=== PATIENT | male | born 1955 | race Caucasian/White ===

== ENCOUNTER 2022-03-11 19:33 | Inpatient (IN) | payer MEDICARE, OTHER ==
[~2022-03-11] VITALS: Ht 177.8 cm; Wt 104.2 kg
[2022-03-11 20:36] LABS: BASOPHILS # (AUTO) 0.1 X10'3 (0-0.2); BASOPHILS % (AUTO) 0.5 % (0-1); EOSINOPHILS # (AUTO) 0.1 X10'3 (0-0.9); EOSINOPHILS % (AUTO) 0.5 % (0-6); HEMATOCRIT 47.9 % (42.0-52.0); HEMOGLOBIN 16.4 g/dl (14.0-17.9); LYMPHOCYTES # (AUTO) 1.4 X10'3 (1.1-4.8); LYMPHOCYTES % (AUTO) 10.8 % (21-51); MEAN CORPUSCULAR HGB CONC 34.2 g/dL (33.0-36.5); MEAN CORPUSCULAR VOLUME 87.7 FL (78-98); MONOCYTES # (AUTO) 1.1 X10'3 (0-0.9); MONOCYTES % (AUTO) 8.2 % (2-12); NEUTROPHILS # (AUTO) 10.8 X10'3 (1.8-7.7); PLATELET COUNT 226 X10'3 (140-440); RED BLOOD COUNT 5.46 X10'6 (4.70-6.10); RED CELL DISTRIBUTION WIDTH 13.8 % (11.5-14.5); WHITE BLOOD COUNT 13.4 X10'3 (4.5-11.0)
[2022-03-11 20:48] LABS: ALANINE AMINOTRANSFERASE 30 U/L (12-78); ALBUMIN 3.6 G/DL (3.4-5.0); ALKALINE PHOSPHATASE 68 IU/L (46-116); ANION GAP 10 (8-16); ASPARTATE AMINO TRANSFERASE 14 U/L (10-37); BILIRUBIN,TOTAL 0.3 MG/DL (0.1-1.0); BLOOD UREA NITROGEN 17 MG/DL (7-18); BUN/CREATININE RATIO 12.3 (5.4-32.0); CALCIUM 8.4 MG/DL (8.5-10.1); CHLORIDE 101 MMOL/L (99-107); CREATININE 1.38 MG/DL (0.60-1.10); GLUCOSE 137 MG/DL (70-104); POTASSIUM 3.8 MMOL/L (3.5-5.1); SODIUM 133 MMOL/L (135-145); TOTAL CARBON DIOXIDE 22.2 MMOL/L (24-32); TOTAL PROTEIN 7.1 G/DL (6.4-8.2); eGFR 51 ML/MIN
[2022-03-11] MEDS ORDERED: temazepam 15mg capsule PO PRN (21:00)
[2022-03-11] MEDS ORDERED: ipratropium/albuterol 3ml nebule NEB ONE (21:30)
[2022-03-11] MEDS ORDERED: levoFLOXACIN-Levaquin 750MG/D5 150 ML IV ONE (21:30)
[2022-03-11] MEDS ORDERED: acetaminophen 325mg tablet PO ONE (21:30)
[2022-03-11] MEDS ORDERED: acetaminophen 325mg tablet PO PRN ×2 (23:55)
[2022-03-11] MEDS ORDERED: HYDROmorphone inj. 0.5 MG/0.5 ML DISP.SYRIN IV PRN (23:55)
[2022-03-11] MEDS ORDERED: mag hydrox/Alum hydrox/simeth 30ml oral suspension PO PRN (23:55)
[2022-03-11] MEDS ORDERED: HYDROcodone/acetaminophen 10/325mg tab PO PRN (23:55)
[2022-03-11] MEDS ORDERED: diphenhydrAMINE 25mg capsule PO PRN (23:55)
[2022-03-11] MEDS ORDERED: ondansetron 4mg rapidly disintigrating tab PO PRN (23:55)
[2022-03-11] MEDS ORDERED: HYDROcodone/acetaminophen 5mg/325mg tablet PO PRN (23:55)
[2022-03-11] MEDS ORDERED: diphenhydrAMINE 50 mg/ml inj IV PRN (23:55)
[2022-03-11] MEDS ORDERED: ondansetron/PF 4mg/2ml inj IV PRN (23:55)
[2022-03-11] MEDS ORDERED: magnesium hydroxide 30ml (MOM) UD suspension PO PRN (23:55)
[2022-03-11] MEDS ORDERED: morphine 2 MG/ML inj. syringe IV PRN ×2 (23:55)
[2022-03-11] MEDS ORDERED: acetaminophen 650mg rectal suppository RC PRN (23:55)
[2022-03-11] MEDS ORDERED: bisacodyl 10mg suppository rectal RC PRN (23:55)
[2022-03-12 00:24] LABS: CREATINE KINASE 61 U/L (39-308); LIPASE 93 U/L (73-393)
[2022-03-12] MEDS: normal saline 1000ml 1,000 ML IV SCH ×3 (01:01→19:55)
[2022-03-12 01:45] LABS: CLARITY,URINE CLEAR (Clear); COLOR,URINE YELLOW (Yellow); GLUCOSE, URINE NEGATIVE (Neg); KETONES,URINE NEGATIVE (Neg); LEUKOCYTE ESTERASE ,URINE NEGATIVE (Neg); NITRITES, URINE NEGATIVE (Neg); OCCULT BLOOD,URINE NEGATIVE (Neg); PH,URINE 5.5 (4.8-8.0); PROTEIN,URINE NEGATIVE (Neg); UROBILINOGEN,URINE 0.2 E.U/dL (0.2-1.0)
[2022-03-12 01:49] LABS: UA COLLECTION TYPE CLN CATCH MIDSTREAM
[2022-03-12] MEDS: ipratropium/albuterol 3ml nebule NEB SCH ×6 (03:24→23:00)
[2022-03-12 05:00] VITALS: BP 131/83
[2022-03-12 06:37] LABS: D-DIMER 1.86 MG/L FEU (0-0.50)
[2022-03-12 06:39] LABS: APTT 29 SECONDS (22-32)
[2022-03-12 06:56] LABS: BASOPHILS % (AUTO) 0.2 % (0-1); EOSINOPHILS % (AUTO) 0.1 % (0-6); HEMATOCRIT 47.3 % (42.0-52.0); LYMPHOCYTES # (AUTO) 1.9 X10'3 (1.1-4.8); LYMPHOCYTES % (AUTO) 12.9 % (21-51); MEAN CORPUSCULAR HGB CONC 33.9 g/dL (33.0-36.5); MEAN CORPUSCULAR VOLUME 88.5 FL (78-98); MEAN PLATELET VOLUME 7.4 FL (7.4-10.4); MONOCYTES # (AUTO) 1.1 X10'3 (0-0.9); MONOCYTES % (AUTO) 7.8 % (2-12); NEUTROPHILS # (AUTO) 11.5 X10'3 (1.8-7.7); PLATELET COUNT 220 X10'3 (140-440); RED BLOOD COUNT 5.35 X10'6 (4.70-6.10); RED CELL DISTRIBUTION WIDTH 14.2 % (11.5-14.5); WHITE BLOOD COUNT 14.5 X10'3 (4.5-11.0)
--- NOTE | 2022-03-12 07:01 | NUR ---
Patient in room PCU 3028. I have received report from Agustina BLUE and had the opportunity to ask questions and assume patient care.
[2022-03-12 07:05] LABS: ALANINE AMINOTRANSFERASE 29 U/L (12-78); ALBUMIN 3.4 G/DL (3.4-5.0); ALBUMIN/GLOBULIN RATIO 0.9 (1.1-1.5); ALKALINE PHOSPHATASE 63 IU/L (46-116); ANION GAP 10 (8-16); ASPARTATE AMINO TRANSFERASE 13 U/L (10-37); BILIRUBIN,TOTAL 0.7 MG/DL (0.1-1.0); BLOOD UREA NITROGEN 14 MG/DL (7-18); BUN/CREATININE RATIO 11.2 (5.4-32.0); CALCIUM 8.6 MG/DL (8.5-10.1); CHLORIDE 102 MMOL/L (99-107); CHOL/HDL RATIO 2.5 (0.00-4.99); CHOLESTEROL 139 MG/DL (0-200); CREATININE 1.25 MG/DL (0.60-1.10); GLUCOSE 147 MG/DL (70-104); HDL CHOLESTEROL 55 MG/DL (35-60); LDL CHOLESTEROL 76 MG/DL (50-100); MAGNESIUM 2.2 MG/DL (1.5-2.4); POTASSIUM 3.4 MMOL/L (3.5-5.1); SODIUM 136 MMOL/L (135-145); TRIGLYCERIDES 49 MG/DL (20-135); eGFR 57 ML/MIN
[2022-03-12 07:08] VITALS: BP 127/72
[2022-03-12 07:18] LABS: HEMOGLOBIN A1C 6.2 % (4.5-6.2)
[2022-03-12] MEDS ORDERED: methylPREDNISolone sod succ 125mg/2ml vial IV SCH (08:00)
[2022-03-12] MEDS: pantoprazole 40mg Tablet.DR PO SCH (10:14)
[2022-03-12] MEDS: docusate sod 100mg capsule PO SCH ×2 (10:14→20:00)
[2022-03-12] MEDS: CefTRIAXone/D5W-Rocephin 1gm 50 ML IV SCH (10:15)
[2022-03-12] MEDS: heparin, porcine 5000 units/ml vial SQ SCH ×2 (10:16→21:29)
[2022-03-12 11:00] VITALS: BP 94/48
[2022-03-12] MEDS ORDERED: magnesium 4gm in 100ml NS 100 ML IV PRN (11:00)
[2022-03-12] MEDS ORDERED: potassium Cl 20 mEq SR tablet PO PRN (11:00)
[2022-03-12] MEDS ORDERED: potassium CL 10mEq/100ml bag 100 ML IV PRN (11:00)
[2022-03-12] MEDS ORDERED: magnesium Cl slow-release 64mg tablet PO PRN (11:00)
[2022-03-12] MEDS ORDERED: iohexol 350MG/ML 100ml bottle IV ONE (11:23)
[2022-03-12] MEDS: azithromycin/NS 500mg/250ml 250 ML IV SCH (11:59)
[2022-03-12] MEDS: methylPREDNISolone sod succ 125mg/2ml vial IV SCH ×2 (14:14→20:00)
[2022-03-12 16:12] VITALS: BP 139/77
[2022-03-12 18:00] VITALS: BP 138/88
[2022-03-12] MEDS ORDERED: EZET10TA48 PO (18:50)
[2022-03-12] MEDS ORDERED: ALBU90AE (18:50)
[2022-03-12] MEDS ORDERED: METO-384 PO (18:50)
[2022-03-12] MEDS ORDERED: ASPI-1265 PO (18:50)
--- NOTE | 2022-03-12 18:57 | NUR ---
Problems reprioritized. Patient report given, questions answered & plan of care reviewed with Toña BLUE.
--- NOTE | 2022-03-12 19:07 | NUR ---
Message: [facility] [id number] re:[id number] Alex Marsh Patient med/rec has been completed, sorry for the delay. Patient has a Lactic critical of 6.8. Toña is the NOC RN. Thank you!
--- NOTE | 2022-03-12 19:23 | NUR ---
pT HAS LACTIC OF 6.8 DR GARCÍA ORDERED A 2L NS BOLUS AND UNINTERRUPTED 100 ML/HR NS AFTER BOLUS.
[2022-03-12] MEDS ORDERED: normal saline 1000ml 1,000 ML IV ONE ×2 (19:40)
[2022-03-12] MEDS: K and/or MAG REPLACEMENT MC SCH (20:00)
[2022-03-12] MEDS: potassium Cl 20 mEq SR tablet PO PRN (21:30)
[2022-03-12 22:00] VITALS: BP 114/57
[2022-03-13] MEDS: methylPREDNISolone sod succ 125mg/2ml vial IV SCH ×4 (01:53→17:21)
[2022-03-13] MEDS: potassium Cl 20 mEq SR tablet PO PRN (01:53)
--- NOTE | 2022-03-13 01:57 | NUR ---
PATIENT'S 1999 SOLUMEDROL MISSED 0200 DOSE GIVEN
[2022-03-13 02:00] VITALS: BP 122/65
[2022-03-13] MEDS: ipratropium/albuterol 3ml nebule NEB SCH ×6 (03:00→23:00)
[2022-03-13 03:49] LABS: ALANINE AMINOTRANSFERASE 24 U/L (12-78); ALBUMIN/GLOBULIN RATIO 0.9 (1.1-1.5); ALKALINE PHOSPHATASE 56 IU/L (46-116); ANION GAP 10 (8-16); ASPARTATE AMINO TRANSFERASE 12 U/L (10-37); BILIRUBIN,TOTAL 0.5 MG/DL (0.1-1.0); BLOOD UREA NITROGEN 17 MG/DL (7-18); BUN/CREATININE RATIO 13.6 (5.4-32.0); CALCIUM 8.5 MG/DL (8.5-10.1); CHLORIDE 104 MMOL/L (99-107); CREATININE 1.25 MG/DL (0.60-1.10); GLUCOSE 191 MG/DL (70-104); MAGNESIUM 2.1 MG/DL (1.5-2.4); PHOSPHORUS 2.3 MG/DL (2.3-4.5); POTASSIUM 4.2 MMOL/L (3.5-5.1); SODIUM 136 MMOL/L (135-145); TOTAL CARBON DIOXIDE 22.3 MMOL/L (24-32); TOTAL PROTEIN 6.5 G/DL (6.4-8.2); eGFR 57 ML/MIN
[2022-03-13 04:08] LABS: BASOPHILS % (AUTO) 0.1 % (0-1); EOSINOPHILS % (AUTO) 0 % (0-6); HEMATOCRIT 43.1 % (42.0-52.0); HEMOGLOBIN 14.5 g/dl (14.0-17.9); LYMPHOCYTES # (AUTO) 0.9 X10'3 (1.1-4.8); LYMPHOCYTES % (AUTO) 6.4 % (21-51); MEAN CORPUSCULAR HEMOGLOBIN 29.7 PG (27.0-31.0); MEAN CORPUSCULAR HGB CONC 33.6 g/dL (33.0-36.5); MEAN CORPUSCULAR VOLUME 88.5 FL (78-98); MEAN PLATELET VOLUME 7.2 FL (7.4-10.4); MONOCYTES # (AUTO) 0.6 X10'3 (0-0.9); MONOCYTES % (AUTO) 4.3 % (2-12); NEUTROPHILS # (AUTO) 12.9 X10'3 (1.8-7.7); NEUTROPHILS % (AUTO) 89.2 % (42-75); PLATELET COUNT 215 X10'3 (140-440); RED BLOOD COUNT 4.87 X10'6 (4.70-6.10); RED CELL DISTRIBUTION WIDTH 14.3 % (11.5-14.5); WHITE BLOOD COUNT 14.4 X10'3 (4.5-11.0)
[2022-03-13] MEDS: normal saline 1000ml 1,000 ML IV SCH ×2 (05:55→14:22)
--- NOTE | 2022-03-13 06:41 | NUR ---
Problems reprioritized. Patient report given, questions answered & plan of care reviewed with MIRZA GRISSOM.
--- NOTE | 2022-03-13 06:57 | NUR ---
Patient in room PCU 3028. I have received report from Toña BLUE and had the opportunity to ask questions and assume patient care.
[2022-03-13 07:07] VITALS: BP 97/48
[2022-03-13] MEDS: metoprolol succinate 25mg (24-HOUR) SR. Tablet PO SCH (08:00)
[2022-03-13] MEDS: K and/or MAG REPLACEMENT MC SCH ×2 (08:00→20:00)
[2022-03-13] MEDS: docusate sod 100mg capsule PO SCH ×2 (08:31→20:00)
[2022-03-13] MEDS: ezetimibe 10mg tablet PO SCH (08:31)
[2022-03-13] MEDS: aspirin 81mg tab.chew PO SCH (08:31)
[2022-03-13] MEDS: CefTRIAXone/D5W-Rocephin 1gm 50 ML IV SCH (08:32)
[2022-03-13] MEDS: pantoprazole 40mg Tablet.DR PO SCH (08:32)
[2022-03-13] MEDS: heparin, porcine 5000 units/ml vial SQ SCH ×2 (08:33→21:57)
[2022-03-13] MEDS: azithromycin/NS 500mg/250ml 250 ML IV SCH (09:25)
[2022-03-13 11:00] VITALS: BP 139/71
[2022-03-13 16:22] VITALS: BP 141/75
--- NOTE | 2022-03-13 16:57 | NUR ---
Message: PRAVEENA [facility] [id number] RE: [id number] KLARISSA, PATIENT TELE EXPRIED TODAY, DID YOU WANT TO CONTINUE TO MONITOR OR DID YOU WANT TO DC TELE. THANKS PRAVEENA.
[2022-03-13 18:00] VITALS: BP 109/50
--- NOTE | 2022-03-13 18:41 | NUR ---
Problems reprioritized. Patient report given, questions answered & plan of care reviewed with JAMES BLUE.
[2022-03-13 22:10] VITALS: BP 142/68
[2022-03-14] MEDS: methylPREDNISolone sod succ 125mg/2ml vial IV SCH ×2 (00:01→08:05)
[2022-03-14] MEDS: normal saline 1000ml 1,000 ML IV SCH (00:03)
[2022-03-14 02:00] VITALS: BP 106/58
[2022-03-14] MEDS: ipratropium/albuterol 3ml nebule NEB SCH ×3 (04:10→11:16)
[2022-03-14 06:30] VITALS: BP 129/67
--- NOTE | 2022-03-14 06:30 | NUR ---
Patient in room PCU 3028. I have received report from JAMES BLUE and had the opportunity to ask questions and assume patient care.
[2022-03-14 07:21] LABS: BASOPHILS % (AUTO) 0.1 % (0-1); EOSINOPHILS % (AUTO) 0 % (0-6); HEMATOCRIT 41.6 % (42.0-52.0); HEMOGLOBIN 14.1 g/dl (14.0-17.9); LYMPHOCYTES # (AUTO) 0.6 X10'3 (1.1-4.8); LYMPHOCYTES % (AUTO) 3.8 % (21-51); MEAN CORPUSCULAR HGB CONC 33.9 g/dL (33.0-36.5); MEAN CORPUSCULAR VOLUME 88.6 FL (78-98); MEAN PLATELET VOLUME 7.5 FL (7.4-10.4); MONOCYTES # (AUTO) 0.8 X10'3 (0-0.9); NEUTROPHILS # (AUTO) 15.2 X10'3 (1.8-7.7); NEUTROPHILS % (AUTO) 91.1 % (42-75); PLATELET COUNT 217 X10'3 (140-440); RED CELL DISTRIBUTION WIDTH 14.4 % (11.5-14.5); WHITE BLOOD COUNT 16.7 X10'3 (4.5-11.0)
[2022-03-14 07:56] LABS: ALANINE AMINOTRANSFERASE 24 U/L (12-78); ALBUMIN 2.8 G/DL (3.4-5.0); ALBUMIN/GLOBULIN RATIO 0.8 (1.1-1.5); ALKALINE PHOSPHATASE 54 IU/L (46-116); ANION GAP 8 (8-16); ASPARTATE AMINO TRANSFERASE 23 U/L (10-37); BILIRUBIN,TOTAL 0.3 MG/DL (0.1-1.0); BLOOD UREA NITROGEN 25 MG/DL (7-18); BUN/CREATININE RATIO 20.5 (5.4-32.0); CALCIUM 8.6 MG/DL (8.5-10.1); CHLORIDE 108 MMOL/L (99-107); CREATININE 1.22 MG/DL (0.60-1.10); GLUCOSE 195 MG/DL (70-104); MAGNESIUM 2.3 MG/DL (1.5-2.4); POTASSIUM 4.7 MMOL/L (3.5-5.1); SODIUM 139 MMOL/L (135-145); TOTAL CARBON DIOXIDE 22.7 MMOL/L (24-32); TOTAL PROTEIN 6.1 G/DL (6.4-8.2); eGFR 59 ML/MIN
[2022-03-14] MEDS: K and/or MAG REPLACEMENT MC SCH (08:00)
[2022-03-14] MEDS: docusate sod 100mg capsule PO SCH (08:00)
[2022-03-14] MEDS: CefTRIAXone/D5W-Rocephin 1gm 50 ML IV SCH (08:01)
[2022-03-14] MEDS: ezetimibe 10mg tablet PO SCH (08:04)
[2022-03-14] MEDS: pantoprazole 40mg Tablet.DR PO SCH (08:04)
[2022-03-14] MEDS: aspirin 81mg tab.chew PO SCH (08:04)
[2022-03-14] MEDS: metoprolol succinate 25mg (24-HOUR) SR. Tablet PO SCH (08:05)
[2022-03-14] MEDS: heparin, porcine 5000 units/ml vial SQ SCH (08:09)
[2022-03-14] MEDS: azithromycin/NS 500mg/250ml 250 ML IV SCH (08:57)
--- NOTE | 2022-03-14 11:32 | NUR ---
Initial: Pt admitted w/ PNA, COPD w/ exacerbation and sepsis per EMR. Currently on Regular diet w/ mostly 100% intake of meals close to meeting minimum protein needs. Will provide double protein BIDBD to ensure needs are being met. [facility] 03/13 receiving routine colace. Will continue to monitor. Recs: 1. Continue Regular diet as tolerated 2. Double protein BIDBD 3. Bowel care per rx 4. Weekly wts Addendum: 03/14/22 at [address] Amended: Links added.
[2022-03-14 11:33] VITALS: BP 130/67
--- NOTE | 2022-03-14 13:34 | NUR ---
Message: ESTHELA ON [email or web address]@[email or web address], PATIENT IN 2093M WANTS TO DISCHARGE. HIS RIDE IS HERE. I WILL WATCH FOR YOUR ORDER, THANK YOU.
[2022-03-14] MEDS ORDERED: PRED10TA23 PO (13:39)
[2022-03-14] MEDS ORDERED: BUDE10.22 INH (13:39)
[2022-03-14] MEDS ORDERED: LACT1CAP26 PO (13:39)
[2022-03-14] MEDS ORDERED: CEFD300C3 PO (13:39)
[2022-03-14] MEDS ORDERED: ALBU8.5H17 INH (13:39)
[2022-03-14] MEDS ORDERED: PANT40TA54 PO (13:39)
[2022-03-14] MEDS ORDERED: ATOR10TA87 PO (13:55)
== END 2022-03-14 14:35 | disposition home or self-care (01) | DRG 871 ==
LOC: ER 19:33 → ED HOLD 23:57 → PCU 3S 03-12 03:50
PROVIDERS: ADMIT Family Medicine; ATTEND Family Medicine
PROC: B32T1ZZ Computerized Tomography (CT Scan) of Left Pulmonary Artery using Low Osmolar Contrast (ICD-10-PCS; principal; 2022-03-12)
PROC: B3201ZZ Computerized Tomography (CT Scan) of Thoracic Aorta using Low Osmolar Contrast (ICD-10-PCS; 2022-03-12)
PROC: B32S1ZZ Computerized Tomography (CT Scan) of Right Pulmonary Artery using Low Osmolar Contrast (ICD-10-PCS; 2022-03-12)
DX: A41.9 Sepsis, unspecified organism (principal); J18.9 Pneumonia, unspecified organism; E87.2 Acidosis; J44.1 Chronic obstructive pulmonary disease with (acute) exacerbation; N17.9 Acute kidney failure, unspecified; J44.0 Chronic obstructive pulmonary disease with (acute) lower respiratory infection; J20.9 Acute bronchitis, unspecified; Z20.822 Contact with and (suspected) exposure to COVID-19; E78.00 Pure hypercholesterolemia, unspecified; I10 Essential (primary) hypertension; I25.10 Atherosclerotic heart disease of native coronary artery without angina pectoris; I25.2 Old myocardial infarction; Z28.310 Unvaccinated for COVID-19; Z79.82 Long term (current) use of aspirin; Z87.891 Personal history of nicotine dependence; Z95.1 Presence of aortocoronary bypass graft; Z88.2 Allergy status to sulfonamides
CPT/HCPCS: 36415; 71045; 71275; 80053; 80061; 81003; 82550; 83036; 83605; 83690; 83735; 83880; 84100; 84145; 84443; 84484; 85025; 85379; 85610; 85730; 87040; 87081; 87502; 87503; 87635; 93005; 93306; 94640; 94760; 96365; 99285; C9803; G0378; J0456; J0696; J1644; J1956; J2930; J3490; J7030; Q9967

== ENCOUNTER 2023-04-11 23:33 | Emergency (ER) | payer MEDICARE, OTHER ==
[~2023-04-11] VITALS: Ht 177.8 cm; Wt 102.3 kg
[~2023-04-11 23:33] MED LIST: ALBU8.5H17 INH; ALBU90AE; BUDE10.22 INH; EZET10TA48 PO; LACT1CAP26 PO; METO-384 PO; PANT40TA54 PO
[2023-04-12 01:11] LABS: BASOPHILS # (AUTO) 0.1 X10'3 (0-0.2); BASOPHILS % (AUTO) 1.7 % (0-1); EOSINOPHILS % (AUTO) 0.2 % (0-6); HEMATOCRIT 47.3 % (42.0-52.0); LYMPHOCYTES % (AUTO) 19.7 % (21-51); MEAN CORPUSCULAR HEMOGLOBIN 30.2 PG (27.0-31.0); MEAN CORPUSCULAR HGB CONC 33.7 g/dL (33.0-36.5); MEAN CORPUSCULAR VOLUME 89.5 FL (78-98); MEAN PLATELET VOLUME 6.9 FL (7.4-10.4); MONOCYTES # (AUTO) 0.7 X10'3 (0-0.9); MONOCYTES % (AUTO) 13.2 % (2-12); NEUTROPHILS # (AUTO) 3.2 X10'3 (1.8-7.7); NEUTROPHILS % (AUTO) 65.2 % (42-75); PLATELET COUNT 134 X10'3 (140-440); RED BLOOD COUNT 5.29 X10'6 (4.70-6.10); RED CELL DISTRIBUTION WIDTH 13.7 % (11.5-14.5)
[2023-04-12 01:24] VITALS: TEMP 100.5
[2023-04-12 01:49] LABS: ALANINE AMINOTRANSFERASE 59 U/L (12-78); ALBUMIN 3.6 G/DL (3.4-5.0); ALBUMIN/GLOBULIN RATIO 1.2 (1.1-1.5); ALKALINE PHOSPHATASE 58 IU/L (46-116); ANION GAP 7 (8-16); ASPARTATE AMINO TRANSFERASE 63 U/L (10-37); BILIRUBIN,TOTAL 0.4 MG/DL (0.1-1.0); BLOOD UREA NITROGEN 23 MG/DL (7-18); BUN/CREATININE RATIO 14.4 (10.0-20.0); CALCIUM 8.8 MG/DL (8.5-10.1); CHLORIDE 99 MMOL/L (99-107); GLUCOSE 126 MG/DL (70-104); POTASSIUM 4.3 MMOL/L (3.5-5.1); SODIUM 133 MMOL/L (135-145); TOTAL CARBON DIOXIDE 26.8 MMOL/L (24-32); TOTAL PROTEIN 6.6 G/DL (6.4-8.2); eCRCL 45 ML/MIN; eGFR 43 ML/MIN
[2023-04-12 01:50] LABS: CREATINE KINASE 379 U/L (39-308); ETHANOL < 10 MG/DL (<10); MAGNESIUM 2.2 MG/DL (1.5-2.4)
[2023-04-12 02:50] LABS: BILIRUBIN,URINE NEGATIVE (Neg); GLUCOSE, URINE NEGATIVE (Neg); KETONES,URINE TRACE mg/dl (Neg); LEUKOCYTE ESTERASE ,URINE NEGATIVE (Neg); NITRITES, URINE NEGATIVE (Neg); OCCULT BLOOD,URINE NEGATIVE (Neg); PH,URINE 5.5 (4.8-8.0); PROTEIN,URINE TRACE mg/dl (Neg); UROBILINOGEN,URINE 0.2 E.U/dL (0.2-1.0)
[2023-04-12 02:57] LABS: CLARITY,URINE SLIGHTLY CLOUDY (Clear); COLOR,URINE DARK YELLOW (Yellow); UA COLLECTION TYPE CLN CATCH MIDSTREAM
[2023-04-12 02:58] LABS: WBC,URINE 0-4 /HPF (0-4)
[2023-04-12 02:59] LABS: BACTERIA,URINE FEW /HPF (Neg); RBC,URINE 0-2 /HPF (0-2); SQUAMOUS EPITHELIAL CELL,UR FEW /LPF (FEW)
[2023-04-12 03:00] LABS: CAL OXALATE CRYSTALS FEW /HPF (NEGATIVE)
[2023-04-12 03:53] VITALS: BP 124/76; PULSE 54; RESP 16; O2SAT 94
--- NOTE | 2023-04-12 05:34 | NUR ---
called Paolo son to inform him his son is up for discharge, he is on his way.
== END 2023-04-12 06:47 | disposition home or self-care (01) ==
LOC: ER 23:34
DX: R53.1 Weakness (principal); E78.00 Pure hypercholesterolemia, unspecified; I51.9 Heart disease, unspecified; R26.9 Unspecified abnormalities of gait and mobility; Z88.2 Allergy status to sulfonamides; Z79.899 Other long term (current) drug therapy; W19.XXXA Unspecified fall, initial encounter; Y93.89 Activity, other specified; Y92.89 Other specified places as the place of occurrence of the external cause; Y99.8 Other external cause status
CPT/HCPCS: 36415; 70450; 71045; 80053; 80320; 81001; 82550; 83605; 83735; 84145; 84484; 85025; 87040; 87077; 87186; 93005; 99285